=== PATIENT | female | born 1980 | race Caucasian/White ===

== ENCOUNTER 2018-12-07 10:18 | Day surgery (SDC) | payer BC | END 2018-12-07 16:11 | disposition home or self-care (01) | LOC: FASU 10:18 ==

== ENCOUNTER → 2020-07-24 | Day surgery (SDC) | payer BC ==
[2020-07-20 12:54] VITALS: BMI 23.7
[~2020-07-24] MED LIST: KETOROLAC TROMETHAMINE 0.5% EYE DROP 1 DROP DROPS ONE; TOBRA 0.3%/DEXAMETH 0.1% OPHTHALMIC SUSP 2.5 ML BTL OD SCH; TOBRA 0.3%/DEXAMETH 0.1% OPHTHALMIC SUSP 2.5 ML BTL ONE
== END | disposition home or self-care (01) ==
LOC: FASU 09:40
PROVIDERS: ATTEND Ophthalmology
PROC: 08B Eye, Excision (ICD-10-PCS; principal; 2020-07-24)
DX: Z53.8 Procedure and treatment not carried out for other reasons (principal); H11.001 Unspecified pterygium of right eye